=== PATIENT | male | born 2000 | race Caucasian/White ===

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

== ENCOUNTER 2020-05-20 02:38 | Emergency (ER) | payer OTHER ==
[2020-05-20 03:13] LABS: BASOPHILS # (AUTO) 0.1 10^3/uL (0.0-0.1); BASOPHILS % (AUTO) 1.1 %; EOSINOPHILS # (AUTO) 0.2 10^3/uL (0.0-0.7); EOSINOPHILS % (AUTO) 3.9 %; HGB - HEMOGLOBIN 14.2 g/dL (14.0-18.0); LYMPHOCYTES # (AUTO) 2.3 10^3/uL (1.5-3.5); LYMPHOCYTES % (AUTO) 40.8 %; MEAN CORPUSCULAR HEMOGLOBIN 29.1 pg (27.0-31.0); MEAN CORPUSCULAR HGB CONC 33.2 g/dL (32.0-36.0); MEAN CORPUSCULAR VOLUME 87.7 fL (80.0-94.0); MEAN PLATELET VOLUME 9.5 fL (7.4-11.4); MONOCYTES # (AUTO) 0.5 10^3/uL (0.0-1.0); MONOCYTES % (AUTO) 9.6 %; NEUTROPHILS # (AUTO) 2.5 10^3/uL (1.5-6.6); NEUTROPHILS % (AUTO) 44.2 %; PLT - PLATELET COUNT 184 10^3/uL (130-450); RED BLOOD COUNT 4.88 10^6/uL (4.70-6.10); RED CELL DISTRIBUTION WIDTH 13.1 % (12.0-15.0); WHITE BLOOD COUNT 5.6 x10^3/uL (4.8-10.8)
[2020-05-20 03:26] LABS: ALBUMIN 4.3 g/dL (3.2-5.5); ALBUMIN/GLOBULIN RATIO 1.4 (1.0-2.2); BILIRUBIN,TOTAL 0.6 mg/dL (0.2-1.0); CREATININE 1.1 mg/dL (0.6-1.2); TOTAL PROTEIN 7.3 g/dL (6.7-8.2)
--- NOTE | 2020-05-20 03:52 | ED Physician Documentation ---
PD HPI CHEST PAIN - Stated complaint Stated Complaint: CP - Chief complaint Chief Complaint: Cardiac - History obtained from History obtained from: Patient - History of Present Illness Timing - onset: How many days ago (5) Timing - onset during: Rest Timing - duration: Days (5) Timing - details: Gradual onset, Still present, Waxing and waning Pain level max: 5 Pain level now: 5 Quality: Aching Location: Substernal, Left chest Radiation: No: Jaw, Neck, Back, Abdominal, Left upper extremity, Right upper extremity Improved by: Rest Worsened by: Inspiration, Movement, Palpation Associated symptoms: No: Shortness of air, Diaphoresis, Nausea, Vomiting, Feeling faint / dizzy, General Weakness, Palpitations, Cough Similar symptoms before: No diagnosis Recently seen: Not recently seen - Additional information Additional information: 19-year-old male who 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 2 weeks ago he developed some pain in the left substernal chest similar to what he has had for the past 5 days. That resolved and he thought nothing of it. Subsequently he is now developed this pressure again and he has become concerned about his heart. He does note that he has been using a mask when he is working out and when he is at work. He wore a mask probably 8 to 9 hours today.He has not otherwise been ill and he does not have a past history of anything specific. Review of Systems Constitutional: denies: Fever Eyes: denies: Decreased vision Ears: denies: Ear pain Nose: denies: Rhinorrhea / runny nose, Congestion Throat: denies: Sore throat Cardiac: reports: Chest pain / pressure. denies: Palpitations, Pedal edema, Calf pain Respiratory: denies: Dyspnea, Cough GI: denies: Abdominal Pain, Nausea, Vomiting : denies: Dysuria, Frequency PD PAST MEDICAL HISTORY - Past Medical History Past Medical History: No - Past Surgical History Past Surgical History: Yes Ortho: Other - Present Medications Home Medications: Ambulatory Orders Medication Instructions Recorded Confirmed No Known Home Medications 07/24/14 07/24/14 - Allergies Allergies/Adverse Reactions: Allergies Allergy/AdvReac Type Severity Reaction Status Date / Time amoxicillin [Amoxicillin] AdvReac Unknown Verified 05/20/20 02:48 - Social History Does the pt smoke?: No Smoking Status: Never smoker Does the pt drink ETOH?: No Does the pt have substance abuse?: No - Immunizations Immunizations are current?: Yes - POLST Patient has POLST: No PD ED PE NORMAL - Vitals Vital signs reviewed: Yes (Hypertensive) - General General: Alert and oriented X 3, No acute distress, Well developed/nourished - HEENT HEENT: Atraumatic, PERRL, EOMI - Neck Neck: Supple, no meningeal sign, No bony TTP - Cardiac Cardiac: RRR, No murmur - Respiratory Respiratory: No respiratory distress, Clear bilaterally, Other (There is chest wall tenderness to the left anterior chest wall that reproduces the pain the patient is experiencing and worsens it.) - Abdomen Abdomen: Soft, Non tender - Back Back: No CVA TTP, No spinal TTP - Derm Derm: Normal color, Warm and dry, No rash - Extremities Extremities: No deformity, No edema - Neuro Neuro: Alert and oriented X 3, technology development intern 2-12 intact, No motor deficit, No sensory deficit, Normal speech Eye Opening: Spontaneous Motor: Obeys Commands Verbal: Oriented GCS Score: 15 - Psych Psych: Normal mood, Normal affect Results - Vitals Vitals: Vital Signs - 24 hr 05/20/20 05/20/20 05/20/20 02:46 03:42 04:11 Temperature 36.2 C L Heart Rate 64 62 74 Respiratory 18 18 18 Rate Blood Pressure 137/80 H 121/75 116/67 O2 Saturation 100 98 98 Oxygen O2 Source Room air - EKG (time done) 0248 Rate: Rate (enter#) (66) Rhythm: NSR Ischemia: ST elevation c/w repol Compare to prior EKG: Old EKG unavailable Computer interpretation: Agree with computer - Labs Labs: Laboratory Tests 05/20/20 05/20/20 05/20/20 03:05 03:05 03:05 WBC 5.6 RBC 4.88 Hgb 14.2 Hct 42.8 MCV 87.7 MCH 29.1 MCHC 33.2 RDW 13.1 Plt Count 184 MPV 9.5 Neut # (Auto) 2.5 Lymph # (Auto) 2.3 Fountain # (Auto) 0.5 Eos # (Auto) 0.2 Baso # (Auto) 0.1 Absolute Nucleated RBC 0.00 Nucleated RBC % 0.0 Sodium 135 Potassium 3.7 Chloride 101 Carbon Dioxide 27 Anion Gap 7.0 BUN 17 Creatinine 1.1 Estimated GFR (MDRD) 86 L Glucose 110 H Calcium 9.0 Total Bilirubin 0.6 AST 26 ALT 19 Alkaline Phosphatase 98 Troponin I High Sens 2.4 Total Protein 7.3 Albumin 4.3 Globulin 3.0 Albumin/Globulin Ratio 1.4 Lipase 26 - Rads (name of study) 2 view chest Radiology: Prelim report reviewed (Impression: No acute pathology.), EMP read indepedently, See rad report PD MEDICAL DECISION MAKING - ED course Complexity details: reviewed results, re-evaluated patient, considered differential, d/w patient ED course: Previously well 19-year-old male with chest wall tenderness has costochondritis. His studies are otherwise unremarkable. I suspect this is related to the patient's continued physical workout accompanied by increased chest wall fatigue related to breathing through a mask for extended periods of time. He is administered a dose of dexamethasone and instructed to use ibuprofen with food as needed for pain control. The patient was mostly relieved to have a reasonable diagnosis and have it not be his heart. Departure - Departure Disposition: 01 Home, Self Care Clinical Impression: Costochondritis, acute Condition: Stable Instructions: ED Chest Pain Costochondritis Follow-Up: LASHELL Nayak [Provider Group] Comments: I suspect the cause of your costochondritis is fatigue of the chest wall muscles related to prolonged mask wearing. This should eventually resolve even with extended mask wearing. Ibuprofen should help with the pain, make sure to take it with food. Discharge Date/Time: 05/20/20 04:27
[2020-05-20] MEDS ORDERED: CHERRY SYRUP 10 ML UDC PO ONE (04:04)
[2020-05-20] MEDS ORDERED: DEXAMETHASONE 10 MG/ML VIAL PO STA (04:04)
[2020-05-20 04:12] VITALS: BP 116/67
--- NOTE | 2020-05-20 08:24 | XRAY Report ---
PROCEDURE: Chest 2 View X-Ray INDICATIONS: chest pain TECHNIQUE: 2 view(s) of the chest. COMPARISON: None. FINDINGS: Surgical changes and devices: None. Lungs and pleura: No pleural effusions or pneumothorax. Lungs are clear. Mediastinum: Mediastinal contours are normal. Heart size is normal. Bones and chest wall: No suspicious bony abnormalities. Soft tissues appear unremarkable. IMPRESSION: No acute cardiopulmonary pathology. Reviewed by: Ortega Estrada MD on 05/20/2020 8:22 AM PDT Approved by: Ortega Estrada MD on 05/20/2020 8:22 AM PDT Station ID: [id number]
== END 2020-05-20 04:27 | disposition home or self-care (01) ==
LOC: ED 02:38
DX: M94.0 Chondrocostal junction syndrome [Tietze] (principal)
CPT/HCPCS: 36415; 71046; 80053; 83690; 84484; 85025; 93005; 99284; A9270